=== PATIENT | male | born 1960 | race Caucasian/White ===

== ENCOUNTER 2021-09-12 08:48 | Day surgery (SDC) | payer MEDICARE, MEDICAID ==
[~2021-09-12 08:48] MED LIST: Midazolam 1 MG/ML 2 ML SDV ONE; Propofol 200 MG/20 ML SDV ONE; Sodium Chloride 0.9% 1,000 ML IV SCH; fentaNYL 100 MCG/2 ML SDV ONE
[2021-09-12] MEDS: Sodium Chloride 0.9% 1,000 ML IV SCH (09:48)
[2021-09-12] MEDS ORDERED: Propofol 200 MG/20 ML SDV ONE (11:43)
--- NOTE | 2021-09-15 06:43 | OR ---
DATE OF PROCEDURE: SURGEON: Wilfredo Pineda MD PROCEDURE PERFORMED: Colonoscopy. FINDINGS: Normal colonoscopy. COMPLICATIONS: None. TOOL AND DIE INSPECTOR: None. ANESTHESIA: MAC. PREOPERATIVE DIAGNOSIS: Screening colonoscopy. POSTOPERATIVE DIAGNOSIS: Screening colonoscopy. RISKS: Risks, benefits, alternatives, and limitations including, but not limited to infection, bleeding, perforation, false positives, and false negatives were explained to the patient. They wished to proceed. PROCEDURE IN DETAIL: The patient was placed in the left lateral decubitus position. Digital rectal exam was performed without abnormality. Scope was introduced and advanced atraumatically to the ileocecal valve. A photo was taken. The scope was brought back to the ascending, transverse, descending colon, and retroflexed. No old or new blood. No masses. No polyps. No diverticulosis. No colitis. The prep was acceptable. Approximately 90% of the luminal surface could be seen. No abnormalities on retroflex. Greater than 8 minutes was spent on removing the scope. The patient tolerated the procedure well. Wilfredo Pineda MD /[id number]
== END 2021-09-12 12:51 | disposition home or self-care (01) ==
LOC: JP.SDS 08:48
PROVIDERS: ATTEND Surgery
DX: Z12.11 Encounter for screening for malignant neoplasm of colon (principal); G47.33 Obstructive sleep apnea (adult) (pediatric); I10 Essential (primary) hypertension; K21.9 Gastro-esophageal reflux disease without esophagitis; E66.01 Morbid (severe) obesity due to excess calories
CPT/HCPCS: G0121; J2250; J2704; J3010; J7030

== ENCOUNTER → 2022-02-11 | Day surgery (SDC) | payer MEDICARE, MEDICAID ==
[~2022-02-11] MED LIST changes: +Bupivacaine 0.5% 30 ML SDV ONE; +Dexamethasone 4 MG/ML SDV ONE; +Diphtheria,Pertussis(Acell),Tetanus Vaccine 0.5 ML Syringe IM ONE; +Glycopyrrolate 0.2 MG/ML 5 ML MDV ONE; +HYDROmorphone 0.5 MG/0.5 ML Syringe IVPUSH ONE; +HYDROmorphone 1 MG/ML Syringe IVPUSH ONE; +Ketamine 500 MG/5 ML MDV IV ONE; -Midazolam 1 MG/ML 2 ML SDV ONE; +Morphine 2 MG/ML SYRINGE IVPUSH ONE; +Neostigmine Methylsulfate 1 MG/ML 5 ML Syringe ONE; +Ondansetron 4 MG/2 ML SDV ONE; +Rocuronium 50 MG/5 ML Vial ONE; -Sodium Chloride 0.9% 1,000 ML IV SCH; +Succinylcholine 200 MG/10 ML MDV ONE; +ceFAZolin 1 GM in Sodium Chloride 0.9% 50 ML IV SCH; +fentaNYL 250 MCG/5 ML SDV ONE
[2022-02-11 13:47] LABS: CORONAVIRUS COVID-19 NAA NEGATIVE (NEGATIVE)
== END ==
LOC: JP.ED 12:01 → JP.SDS 13:21
PROVIDERS: ATTEND Specialist
DX: S62.625A Displaced fracture of middle phalanx of left ring finger, initial encounter for closed fracture (principal); S62.635A Displaced fracture of distal phalanx of left ring finger, initial encounter for closed fracture; S62.613A Displaced fracture of proximal phalanx of left middle finger, initial encounter for closed fracture; S62.627A Displaced fracture of middle phalanx of left little finger, initial encounter for closed fracture; S62.623A Displaced fracture of middle phalanx of left middle finger, initial encounter for closed fracture; S62.637A Displaced fracture of distal phalanx of left little finger, initial encounter for closed fracture; I10 Essential (primary) hypertension; F32.A Depression, unspecified; Z01.812 Encounter for preprocedural laboratory examination; Z20.822 Contact with and (suspected) exposure to COVID-19
CPT/HCPCS: 0241U; 26727; 26756; 26952; 36415; 73130-26-LT; 73130-LT; 76000; 80053; 85025; 90471; 90715; 96365; 96375; 96376; 99283; 99283-25; C1713; J0330; J0690; J1100; J1170; J2270; J2405; J2704; J2710; J3010; J3490

== ENCOUNTER 2023-08-26 12:28 | Emergency (ER) | payer MEDICARE, MEDICAID ==
[2023-08-26] MEDS ORDERED: Naloxone 0.4 MG/ML SDV IVPUSH PRN (15:42)
[2023-08-26] MEDS ORDERED: fentaNYL 50 MCG/ML SDV IM ONE (15:42)
[2023-08-26] MEDS ORDERED: Bacitracin Oint 1 GM U/D Packet TOP ONE (15:47)
== END 2023-08-26 16:30 | disposition home or self-care (01) ==
LOC: JP.ED 12:28
DX: S01.01XA Laceration without foreign body of scalp, initial encounter (principal); I10 Essential (primary) hypertension; Z79.899 Other long term (current) drug therapy; W01.10XA Fall on same level from slipping, tripping and stumbling with subsequent striking against unspecified object, initial encounter
CPT/HCPCS: 12004; 99282